=== PATIENT | female | born 1970 | race Caucasian/White ===

== ENCOUNTER → 2020-03-15 | Outpatient (CLI) | payer OTHER | END | disposition home or self-care (01) | LOC: LABWHC1 13:56 | PROVIDERS: ATTEND Neurological Surgery | DX: Z11.59 Encounter for screening for other viral diseases (principal); I67.1 Cerebral aneurysm, nonruptured ==

== ENCOUNTER 2022-08-03 11:52 | Day surgery (SDC) | payer OTHER ==
[2022-07-31 12:08] VITALS: BMI 20.9
[~2022-08-03 11:52] MED LIST: DEXAMETHASONE SOD PHOSPHATE 4 MG/ML 1 ML VIAL IV ONE; HYDROmorphone 0.5 MG/0.5 ML SYRINGE IVP PRN; LACTATED RINGERS 1,000 ML IV SCH; ONDANSETRON 4 MG/2 ML VIAL IVP ONE
[2022-08-03 12:22] VITALS: TEMP 98.7
[2022-08-03 12:57] VITALS: RESP 16
[2022-08-03] MEDS ORDERED: MIDAZOLAM 2 MG/2 ML VIAL IV ONE (12:59)
[2022-08-03] MEDS ORDERED: DEXAMETHASONE SOD PHOSPHATE 4 MG/ML 1 ML VIAL ONE (13:08)
[2022-08-03] MEDS ORDERED: fentaNYL (PF) 50 MCG/ML 2 ML AMP ONE (13:08)
[2022-08-03] MEDS ORDERED: ROPIVACAINE 5 MG/ML 30 ML VIAL ONE (13:08)
[2022-08-03] MEDS ORDERED: MIDAZOLAM 2 MG/2 ML VIAL ONE (13:08)
[2022-08-03] MEDS ORDERED: PROPOFOL 10 MG/ML 20 ML VIAL IV ONE (13:08)
--- NOTE | 2022-08-03 13:24 | P.ANPRN ---
Procedure Note - Anesthesia - Nerve Block Performed Right Supraclavicular Single Time Out Performed: Yes Date of Procedure: 08/03/22 Procedure Start Time: 13:01 Procedure Stop Time: 13:06 Location of Patient: PreOp Indication: Acute Post-Operative Pain, Analgesia, Requested by Surgeon Sedation Type: Sedate with meaningful contact maintained Preparation: Sterile Prep Position: Sitting Catheter: None Needle Types: Pajunk Needle Gauge: 21 Ultrasound used to visualize needle placement: Yes Ultrasound used to observe medication spread: Yes Injectate: 0.5% Ropivacaine (see comment for volume) (20 + 10mg dexamethasone) Blood Aspirated: No Pain Paresthesia on Injection Noted: No Resistance on Injection: Normal Image Stored and Saved: Yes Events: Uneventful and Well Tolerated
[2022-08-03] MEDS ORDERED: GELATIN SPONGE,ABSORB (SMALL) 1 EACH SPONGE MISCELLANE ONE (13:39)
[2022-08-03] MEDS ORDERED: LACTATED RINGERS 1,000 ML IV ONE (13:53)
--- NOTE | 2022-08-03 14:09 | P.OP ---
Date of Procedure: 08/03/22 Preoperative Diagnosis: Right thumb CMC osteoarthritis Postoperative Diagnosis: Same Procedure(s) Performed: Right thumb tendon arthroplasty Anesthesia: MAC, regional Surgeon: Concepcion Simmons Greeter Guest Services #1: Alia Casarez Estimated Blood Loss (ml): 5 Condition: stable Disposition: PACU Indications for Procedure: Vickie is a 52-year-old female who has a long history of right CMC pain. She has failed conservative therapy and would like to proceed with surgical intervention. Description of Procedure: Patient, operative extremity, and procedure were identified in the preop holding area. After informed consent was obtained the patient received a regional block by the anesthesia team. She was then brought back to the operating room where the extremity was prepped and draped in normal sterile fashion. After a formal timeout was performed the tourniquet was inflated. A longitudinal incision was made over the CMC joint of the thumb at the intersection of the glabrous and non-glabrous skin. Dissection was carried down to the extensor tendons with care taken to protect the cutaneous nerves. The interval between the APB and EPB was developed and the joint capsule was accessed. The branch of the radial artery was identified and carefully protecte d. Interval between the metacarpal and the trapezium was entered with a Mercer elevator. The positioning was checked on fluoroscopy. The capsule was then lifted in a distal-based flap. Dissection was carried around the trapezium with a McClamary elevator. The trapezium was then removed in its entirety with a rongeur. A suture tape suture was then utilized to tenodesis the APL to the FCR tendon in the base of the wound. This produced a sling a fact and some abduction of the metacarpal. Axial compression revealed stable construct. A piece of Surgicel was placed into the wound itself. Capsule was repaired in an imbricated fashion to accentuate the abduction of the metacarpal. The tourniquet was then let down hemostasis was achieved and the wound was closed with 4-0 Monocryl and skin glue. Wound was dressed with Adaptic 4 x 4's cast padding and a thumb spica splint.
[2022-08-03 14:31] VITALS: BP 110/74; PULSE 70
== END 2022-08-03 14:48 | disposition home or self-care (01) ==
LOC: OR 11:52
PROVIDERS: ATTEND Orthopaedic Surgery Hand Surgery
DX: M18.11 Unilateral primary osteoarthritis of first carpometacarpal joint, right hand (principal); G89.18 Other acute postprocedural pain; G47.00 Insomnia, unspecified; F41.8 Other specified anxiety disorders; I10 Essential (primary) hypertension; F17.200 Nicotine dependence, unspecified, uncomplicated; Z79.899 Other long term (current) drug therapy
CPT/HCPCS: 64415; 76942; 26535; J2250; J1100; J2405; J0690; J3010; J2795; J2704

== ENCOUNTER 2022-09-30 10:51 | Emergency (ER) | payer OTHER ==
[2022-09-30 10:58] VITALS: RESP 18
[2022-09-30] MEDS ORDERED: SODIUM CHLORIDE 0.9% 1,000 ML IV STA (11:10)
[2022-09-30] MEDS ORDERED: ONDANSETRON 4 MG/2 ML VIAL IVP STA (11:10)
[2022-09-30] MEDS ORDERED: PANTOPRAZOLE 40 MG/10 ML VIAL IVP STA (11:11)
--- NOTE | 2022-09-30 11:15 | ED ---
Nausea/Vomiting/Diarrhea HPI - General Chief complaint: Nausea/Vomiting/Diarrhea Stated complaint: N/V/D, fever, cough Time Seen by Provider: 09/30/22 11:03 Source: patient, RN notes reviewed, old records reviewed Mode of arrival: ambulatory Limitations: no limitations - History of Present Illness Initial comments: 52-year-old female presents to the emergency room with complaints of nausea, vomiting, diarrhea, headache and chills for the past week. She states has had nasal congestion for two weeks. She denies any documented fevers. She is a half pack a day smoker. History of hypertension, migraine headaches. Takes lisinopril and Cymbalta daily. MD complaint: nausea, vomiting, diarrhea -: week(s) (1) Description of Vomiting: watery Description of Diarrhea: water Associated Abdominal Pain: No Severity scale (1-10): 0 Associated Symptoms: fever/chills, headaches, nausea/vomiting, other (Diarrhea) - Related Data Home Medications Medication Instructions Recorded Confirmed Butalb/APAP/Caff 50-325-40Mg 1 tab PO Q4H PRN 07/31/22 09/30/22 [Fioricet 50-325-40] Celecoxib [CeleBREX] 200 mg PO DAILY 07/31/22 09/30/22 Cholecalciferol [Vitamin D3 (25 25 mcg PO DAILY 07/31/22 09/30/22 Mcg = 1000 Iu)] Cyanocobalamin (Vitamin B-12) 1,000 mcg PO DAILY 07/31/22 09/30/22 [Vitamin B-12] DULoxetine HCL [Cymbalta] 30 mg PO BID 07/31/22 09/30/22 Ipratropium/Albuter 20-100Mcg 1 puff INHALATION RT-QID PRN 07/31/22 09/30/22 [Combivent Respimat 20-100Mcg Inhaler] lisinopriL [Zestril] 10 mg PO DAILY 07/31/22 09/30/22 traZODone HCL 2 tab PO HS 07/31/22 09/30/22 Allergies Allergy/AdvReac Type Severity Reaction Status Date / Time No Known Allergies Allergy Verified 09/30/22 16:33 Review of Systems ROS Statement: Those systems with pertinent positive or pertinent negative responses have been documented in the HPI. ROS Other: All systems not noted in ROS Statement are negative. Past Medical History Past Medical History: Hypertension Additional Past Medical History / Comment(s): MIGRAINES, SMALL BRAIN ANEURYSMS- BEING WATCHED, LARGE BRAIN ANEURYSM CLIPPED History of Any Multi-Drug Resistant Organisms: None Reported Past Surgical History: Tubal Ligation Additional Past Surgical History / Comment(s): BRAIN SURGERY AT [facility] FOR CLIPPING OF ANEURYSM Past Anesthesia/Blood Transfusion Reactions: No Reported Reaction Past Psychological History: Anxiety, Depression Smoking Status: Current every day smoker Past Alcohol Use History: None Reported Past Drug Use History: None Reported - Past Family History Mother Family Medical History: Hypertension Additional Family Medical History / Comment(s): DIVERTICULITIS Father History Unknown: Yes Sister(s) Additional Family Medical History / Comment(s): CROHNS General Exam Limitations: no limitations General appearance: alert, in no apparent distress Head exam: Present: atraumatic, normocephalic Eye exam: Present: normal appearance. Absent: scleral icterus, conjunctival injection, periorbital swelling, periorbital tenderness ENT exam: Present: mucous membranes moist Neck exam: Present: normal inspection, full ROM. Absent: tenderness, meningismus, lymphadenopathy Respiratory exam: Present: normal lung sounds bilaterally. Absent: respiratory distress, wheezes, rales, rhonchi, stridor, chest wall tenderness, accessory muscle use Cardiovascular Exam: Present: regular rate GI/Abdominal exam: Present: soft. Absent: distended, tenderness, rigid Extremities exam: Present: normal inspection, full ROM, normal capillary refill. Absent: pedal edema Neurological exam: Present: alert, oriented X3 Psychiatric exam: Present: normal affect, normal mood Skin exam: Present: warm, dry, normal color. Absent: rash, cyanosis, diaphoretic, petechiae, pallor Course Vital Signs 09/30/22 09/30/22 09/30/22 10:56 11:48 14:04 Temperature 97.9 F 97.2 F L Pulse Rate 92 70 Respiratory 18 18 Rate Blood Pressure 105/72 96/69 118/85 O2 Sat by Pulse 100 95 Oximetry Medical Decision Making - Medical Decision Making Vital signs are stable patient is afebrile Given Zofran and Protonix and IV fluids CBC shows a mild leukocytosis, electrolytes and dehydration. She is positive for coronavirus Vital signs are stable case discussed with Dr. Isbell Was pt. sent in by a medical professional or institution? @ -No Did you speak to anyone other than the patient for history? @ -No Did you review nursing and triage notes? @ -Yes I agree Were old charts reviewed? @ -No Differential Diagnosis? @ -Differential Abdominal Pain Women: pancreatitis, hepatitis, gastroenteritis, peptic ulcer disease, viral illness this is not meant to be an all-inclusive list What testing was considered but not performed? (CT, X-rays, U/S, labs)? Why? @ None] What meds were considered but not given? Why? @ -None Did you discuss the management of the patient with other professionals? @ -No Did you reconcile home meds? @ -No Was smoking cessation discussed for >3mins.? @ -Yes Was critical care preformed (if so, how long)? @ -No Were there social determinants of health that impacted care today? How? (Homelessness, low income, unemployed, alcoholism, drug addiction, transportation, low edu. Level, literacy, decrease access to med. care, detention, rehab)? @ -No Was there de-escalation of care discussed even if they declined? (Discuss DNR or withdrawal of care, Hospice)? @ -No What co-morbidities impacted this encounter? (DM, HTN, Smoking, COPD, CAD, Cancer, CVA, Hep., AIDS, mental health diagnosis, sleep apnea, morbid obesity)? @ -Hypertension, migraines, anxiety, depression, smoking Was patient admitted / discharged? @ -Discharged Undiagnosed new problem with uncertain prognosis? @ -[none] Drug Therapy requiring intensive monitoring for toxicity (Heparin, Nitro, Insulin, Cardizem)? @ -No Were any procedures done? @ -None Diagnosis/symptom? @ -Coronavirus Acute, or Chronic, or Acute on Chronic? @ -Acute Uncomplicated (without systemic symptoms) or Complicated (systemic symptoms)? @ -Uncomplicated Side effects of treatment? @ -[none] Exacerbation, Progression, or Severe Exacerbation] @ -[no] Poses a threat to life or bodily function? @ -[no] - Lab Data Result diagrams: 09/30/22 11:39 09/30/22 11:39 Lab Results 09/30/22 09/30/22 09/30/22 Range/Units 11:39 11:39 11:39 WBC 12.0 H (3.8-10.6) k/uL RBC 3.78 L (3.80-5.40) m/uL Hgb 12.1 (11.4-16.0) gm/dL Hct 35.2 (34.0-46.0) % MCV 93.2 (80.0-100.0) fL MCH 32.1 (25.0-35.0) pg MCHC 34.5 (31.0-37.0) g/dL RDW 13.3 (11.5-15.5) % Plt Count 240 (150-450) k/uL MPV 9.0 Neutrophils % 82 % Lymphocytes % 8 % Monocytes % 6 % Eosinophils % 0 % Basophils % 0 % Neutrophils # 9.8 H (1.3-7.7) k/uL Lymphocytes # 1.0 (1.0-4.8) k/uL Monocytes # 0.7 (0-1.0) k/uL Eosinophils # 0.1 (0-0.7) k/uL Basophils # 0.0 (0-0.2) k/uL Sodium 135 L (137-145) mmol/L Potassium 3.7 (3.5-5.1) mmol/L Chloride 104 (98-107) mmol/L Carbon Dioxide 25 (22-30) mmol/L Anion Gap 6 mmol/L BUN 21 H (7-17) mg/dL Creatinine 0.75 (0.52-1.04) mg/dL Est GFR (CKD-EPI)AfAm >90 (>60 ml/min/1.73 sqM) Est GFR (CKD-EPI)NonAf >90 (>60 ml/min/1.73 sqM) Glucose 128 H (74-99) mg/dL Calcium 8.4 (8.4-10.2) mg/dL Total Bilirubin 0.5 (0.2-1.3) mg/dL AST 99 H (14-36) U/L ALT 88 H (4-34) U/L Alkaline Phosphatase 143 H (38-126) U/L Total Protein 6.5 (6.3-8.2) g/dL Albumin 3.3 L (3.5-5.0) g/dL Influenza Type A (PCR) Not Detected (Not Detectd) Influenza Type B (PCR) Not Detected (Not Detectd) RSV (PCR) Not Detected (Not Detectd) SARS-CoV-2 (PCR) Detected A (Not Detectd) Disposition Clinical Impression: COVID-19 Disposition: HOME SELF-CARE Condition: Good Instructions (If sedation given, give patient instructions): COVID-19 (Coronavirus Disease 2019) (ED) Additional Instructions: Increase your fluid intake. Follow-up with the primary care doctor this week. Take vitamin C, vitamin D and zinc to improve your immune health. Stop smoking as this will lengthen the duration of your illness. Is patient prescribed a controlled substance at d/c from ED?: No Referrals: Lillian Rubi MD [Primary Care Provider] - 1-2 days Time of Disposition: 12:50
[2022-09-30 11:49] LABS: Basophils % (A) 0 %; Eosinophils # (A) 0.1 k/uL (0-0.7); Eosinophils % (A) 0 %; HCT 35.2 % (34.0-46.0); HGB 12.1 gm/dL (11.4-16.0); Lymphocytes % (A) 8 %; MCH 32.1 pg (25.0-35.0); MCHC 34.5 g/dL (31.0-37.0); MCV 93.2 fL (80.0-100.0); Monocytes # (A) 0.7 k/uL (0-1.0); Monocytes % (A) 6 %; Neutrophils # (A) 9.8 k/uL (1.3-7.7); Neutrophils % (A) 82 %; Platelet Count 240 k/uL (150-450); RBC 3.78 m/uL (3.80-5.40); RDW 13.3 % (11.5-15.5)
[2022-09-30 12:12] LABS: ALT 88 U/L (4-34); AST 99 U/L (14-36); African American GFR (CKD) >90 (>60 ml/min/1.73 sqM); Albumin 3.3 g/dL (3.5-5.0); Alkaline Phosphatase 143 U/L (38-126); Anion Gap 6 mmol/L; Blood Urea Nitrogen 21 mg/dL (7-17); Calcium 8.4 mg/dL (8.4-10.2); Carbon Dioxide 25 mmol/L (22-30); Chloride 104 mmol/L (98-107); Glucose 128 mg/dL (74-99); Non-African American GFR(CKD) >90 (>60 ml/min/1.73 sqM); Potassium 3.7 mmol/L (3.5-5.1); Sodium 135 mmol/L (137-145); Total Bilirubin 0.5 mg/dL (0.2-1.3); Total Protein 6.5 g/dL (6.3-8.2)
[2022-09-30 14:07] VITALS: BP 118/85; PULSE 70; TEMP 97.2
== END 2022-09-30 14:08 | disposition home or self-care (01) ==
LOC: EC 10:51
DX: U07.1 COVID-19 (principal); I10 Essential (primary) hypertension; F41.9 Anxiety disorder, unspecified; F32.A Depression, unspecified; F17.210 Nicotine dependence, cigarettes, uncomplicated; Z79.899 Other long term (current) drug therapy
CPT/HCPCS: 36415; 80053; 85025; 87636; 99284; 96374; 96375; 96361; J2405; C9113

== ENCOUNTER 2024-04-20 11:20 | Observation (INO) | payer OTHER ==
--- NOTE | 2024-04-20 11:48 | ED ---
Chest Pain HPI - General Source: patient, RN notes reviewed <Lois Martins - Last Filed: 04/20/24 11:48> - General Source: patient, RN notes reviewed Limitations: no limitations <Mendoza Schumacher - Last Filed: 04/20/24 17:42> - General Chief Complaint: Chest Pain Stated Complaint: chest pain/SOB Time Seen by Provider: 04/20/24 11:38 - History of Present Illness Initial Comments: Quick [id number] female with a history of hypertension, COPD, and tobacco abuse presents emergency department chief complaint of intermittent chest pain over the past week. Patient states that symptoms will last for approximately 30 minutes to 1 hour and she has had episodes that awaken her from sleep. Patient was recently started on Wellbutrin approximately 2 weeks ago for anxiety. denies personal history of [place], CVA. Denies blood thinner use. (Lois Martins) Patient is a 53-year-old female presenting to the emergency department with concerns for chest discomfort. Symptoms have progressed over the past couple of weeks. Patient states symptoms do worsen with exertion. Patient does have some associated dyspnea. No nausea or diaphoresis. Patient is a smoker. Patient also has history of hypertension. Currently symptoms are mild. (Mendoza Schumacher) - Related Data Home Medications Medication Instructions Recorded Confirmed Butalb/APAP/Caff 50-325-40Mg 1 tab PO Q4H PRN 07/31/22 09/30/22 [Fioricet 50-325-40] Celecoxib [CeleBREX] 200 mg PO DAILY 07/31/22 09/30/22 Cholecalciferol [Vitamin D3 (25 25 mcg PO DAILY 07/31/22 09/30/22 Mcg = 1000 Iu)] Cyanocobalamin (Vitamin B-12) 1,000 mcg PO DAILY 07/31/22 09/30/22 [Vitamin B-12] DULoxetine HCL [Cymbalta] 30 mg PO BID 07/31/22 09/30/22 Ipratropium/Albuter 20-100Mcg 1 puff INHALATION RT-QID PRN 07/31/22 09/30/22 [Combivent Respimat 20-100Mcg Inhaler] lisinopriL [Zestril] 10 mg PO DAILY 07/31/22 09/30/22 traZODone HCL 2 tab PO HS 07/31/22 09/30/22 Allergies Allergy/AdvReac Type Severity Reaction Status Date / Time No Known Allergies Allergy Verified 04/20/24 11:48 Review of Systems ROS Other: All systems not noted in ROS Statement are negative. <Lois Martins - Last Filed: 04/20/24 11:48> ROS Other: All systems not noted in ROS Statement are negative. Constitutional: Denies: fever Eyes: Denies: eye pain Cardiovascular: Reports: as per HPI, chest pain, dyspnea on exertion <Mendoza Schumacher Last Filed: 04/20/24 17:42> ROS Statement: Those systems with pertinent positive or pertinent negative responses have been documented in the HPI. EKG Findings - EKG Results: EKG: interpreted by ERMD, sinus rhythm, normal axis, normal QRS, normal ST/T <Mendoza Schumacher Filed: 04/20/24 17:42> Past Medical History Past Medical History: Hypertension Additional Past Medical History / Comment(s): MIGRAINES, SMALL BRAIN ANEURYSMS- BEING WATCHED, LARGE BRAIN ANEURYSM CLIPPED History of Any Multi-Drug Resistant Organisms: None Reported Past Surgical History: Tubal Ligation Additional Past Surgical History / Comment(s): BRAIN SURGERY AT [facility] FOR CLIPPING OF ANEURYSM Past Anesthesia/Blood Transfusion Reactions: No Reported Reaction Past Psychological History: Anxiety, Depression Smoking Status: Current every day smoker Past Alcohol Use History: None Reported Past Drug Use History: None Reported - Past Family History Mother Family Medical History: Hypertension Additional Family Medical History / Comment(s): DIVERTICULITIS Father History Unknown: Yes Sister(s) Additional Family Medical History / Comment(s): CROHNS <Lois Martins - Last Filed: 04/20/24 11:48> Past Medical History: Hypertension Smoking Status: Current every day smoker <Mendoza Schumacher Last Filed: 04/20/24 17:42> General Exam <Lois Martins Last Filed: 04/20/24 11:48> Limitations: no limitations General appearance: alert, in no apparent distress Head exam: Present: normocephalic Eye exam: Present: normal appearance Neck exam: Present: normal inspection Respiratory exam: Present: normal lung sounds bilaterally. Absent: chest wall tenderness Cardiovascular Exam: Present: regular rate, normal rhythm, normal heart sounds Expanded Peripheral pulses: 2+: Radial (R), Radial (L), Posterior Tibialis (R), Posterior Tibialis (L) GI/Abdominal exam: Present: soft. Absent: tenderness Extremities exam: Present: normal inspection. Absent: pedal edema, calf tenderness Neurological exam: Present: alert Psychiatric exam: Present: normal affect, normal mood Skin exam: Present: normal color <Mendoza Schumacher - Last Filed: 04/20/24 17:42> - General Exam Comments Initial Comments: Visual Physical Exam Vital signs reviewed General: Well-appearing, nontoxic, no acute distress. Head: Normocephalic, atraumatic Eyes: PERRLA, EOMI ENT: Airway patent Chest: Nonlabored breathing Skin: No visual rash, normal skin tone Neuro: Alert and oriented 3 Musculoskeletal: No gross abnormalities (Lois Martins) Course Vital Signs 04/20/24 11:44 Temperature 97.6 F Pulse Rate 89 Respiratory 20 Rate Blood Pressure 139/93 O2 Sat by Pulse 98 Oximetry Chest Pain MDM <Lois Martins - Last Filed: 04/20/24 11:48> <Mendoza Schumacher - Last Filed: 04/20/24 17:42> - MDM I completed the quick note portion of this chart signed Lois Martins PA-C (oLis Martins) Was pt. sent in by a medical professional or institution (RACHELL Solano, CURATOR OF PHOTOGRAPHY AND PRINTS, urgent care, hospital, or correction...) When possible be specific @ -No Did you speak to anyone other than the patient for history (EMS, parent, family, police, friend...)? What history was obtained from this source @ -No Did you review nursing and triage notes (agree or disagree)? Why? @ -I reviewed and agree with nursing and triage notes Were old charts reviewed (outside hosp., previous admission, EMS record, old EKG, old radiological studies, urgent care reports/EKG's, correction records)? Report findings @ -No old charts were reviewed Differential Diagnosis (chest pain, altered mental status, abdominal pain women, abdominal pain men, vaginal bleeding, weakness, fever, dyspnea, syncope, headache, dizziness, GI bleed, back pain, seizure, CVA, palpatations, mental health, musculoskeletal)? @ -Differential Chest Pain: Stable Angina, Unstable Angina, STEMI, NSTEMI Aortic Dissection, Pneumothorax, Musculoskeletal, Esophageal Spasm GERD, Cholecystitis, Pancreatitis, Zoster, this is not meant to be an all-inclusive list. EKG interpreted by me (3pts min.). @ -As above X-rays interpreted by me (1pt min.). @ -Chest x-ray shows no acute process CT interpreted by me (1pt min.). @ -None done U/S interpreted by me (1pt. min.). @ -None done What testing was considered but not performed or refused? (CT, X-rays, U/S, labs)? Why? @ -None What meds were considered but not given or refused? Why? @ -None Did you discuss the management of the patient with other professionals ( professionals i.e. , PA, CURATOR OF PHOTOGRAPHY AND PRINTS, lab, RT, psych nurse, community mental health social worker, naphthol soaping machine operator, teacher, transit authority police officer, employment evaluator/case manager)? Give summary @ -Case was discussed with Dr. Rasheed who will admit covering Dr. Rubi Was smoking cessation discussed for >3mins.? @ -No Was critical care preformed (if so, how long)? @ -No Were there social determinants of health that impacted care today? How? (Homelessness, low income, unemployed, alcoholism, drug addiction, transportation, low edu. Level, literacy, decrease access to med. care, skilled nursing, rehab)? @ -No Was there de-escalation of care discussed even if they declined (Discuss DNR or withdrawal of care, Hospice)? DNR status @ -No What co-morbidities impacted this encounter? (DM, HTN, Smoking, COPD, CAD, Cancer, CVA, ARF, Chemo, Hep., AIDS, mental health diagnosis, sleep apnea, morbid obesity)? @ -Attention and smoking Was patient admitted / discharged? Hospital course, mention meds given and route, prescriptions, significant lab abnormalities, going to OR and other pertinent info. @ -Patient presents with progressive chest discomfort of the past couple of weeks, exertional with risk factors of smoking and hypertension. Mild symptoms at this time. Troponin and EKG without acute abnormality. Case discussed with Dr. Rasheed who will admit. Admission orders written. Consult placed with cardiology Undiagnosed new problem with uncertain prognosis? @ -No Drug Therapy requiring intensive monitoring for toxicity (Heparin, Nitro, Insulin, Cardizem)? @ -No Were any procedures done? @ -No Diagnosis/symptom? @ -Chest pain Acute, or Chronic, or Acute on Chronic? @ -Acute Uncomplicated (without systemic symptoms) or Complicated (systemic symptoms)? @ -Default Side effects of treatment? @ -No Exacerbation, Progression, or Severe Exacerbation? @ -No Poses a threat to life or bodily function? How? (Chest pain, [place], [place], pneumonia, PE, COPD, DKA, ARF, appy, cholecystitis, CVA, Diverticulitis, Homicidal, Suicidal, threat to staff... and all critical care pts) @ -Threat to cardiac function (Mendoza Schumacher) Disposition <Lois Maritns - Last Filed: 04/20/24 11:48> Is patient prescribed a controlled substance at d/c from ED?: No Time of Disposition: 17:42 <Mendoza Schumacher - Last Filed: 04/20/24 17:42> Clinical Impression: Chest pain Disposition: ADMITTED IP TO THIS HOSP Referrals: Lillian Rubi MD [Primary Care Provider] - 1-2 days
[2024-04-20 12:08] LABS: Basophils % (A) 0 %; Eosinophils # (A) 0.2 k/uL (0-0.7); Eosinophils % (A) 3 %; HCT 41.4 % (34.0-46.0); HGB 14.3 gm/dL (11.4-16.0); Lymphocytes # (A) 1.1 k/uL (1.0-4.8); Lymphocytes % (A) 17 %; MCH 31.7 pg (25.0-35.0); MCHC 34.4 g/dL (31.0-37.0); MCV 92.1 fL (80.0-100.0); Mean Platelet Volume 8.6; Monocytes # (A) 0.5 k/uL (0-1.0); Monocytes % (A) 7 %; Neutrophils # (A) 4.5 k/uL (1.3-7.7); Neutrophils % (A) 71 %; Platelet Count 193 k/uL (150-450); RDW 12.3 % (11.5-15.5); WBC 6.3 k/uL (3.8-10.6)
[2024-04-20 12:19] LABS: Partial Thromboplastin Time 28.5 sec (22.0-30.0); Prothrombin Time 11.4 sec (10.0-12.5)
[2024-04-20 12:34] LABS: ALT 46 U/L (4-34); AST 47 U/L (14-36); African American GFR (CKD) >90 (>60 ml/min/1.73 sqM); Albumin 3.9 g/dL (3.5-5.0); Alkaline Phosphatase 64 U/L (38-126); Anion Gap 8 mmol/L; Blood Urea Nitrogen 11 mg/dL (7-17); Calcium 9.5 mg/dL (8.4-10.2); Carbon Dioxide 21 mmol/L (22-30); Chloride 107 mmol/L (98-107); Glucose 127 mg/dL (74-99); Magnesium 1.8 mg/dL (1.6-2.3); Non-African American GFR(CKD) >90 (>60 ml/min/1.73 sqM); Potassium 3.8 mmol/L (3.5-5.1); Sodium 136 mmol/L (137-145); Total Bilirubin 0.4 mg/dL (0.2-1.3); Total Protein 6.6 g/dL (6.3-8.2)
--- NOTE | 2024-04-20 12:50 | XR ---
EXAMINATION TYPE: XR chest 2V DATE OF EXAM: 04/20/2024 COMPARISON: 08/23/2015 HISTORY: Shortness of breath TECHNIQUE: Frontal and lateral views of the chest are obtained. FINDINGS: Scattered senescent parenchymal changes noted. Hyperinflation compatible with COPD. No evidence for infiltrate. No evidence for atelectasis. Heart size is stable. Mediastinal structures are stable and grossly unremarkable. No evidence for hilar prominence. Degenerative changes dorsal spine. IMPRESSION: 1. No evidence for acute pulmonary disease.
[2024-04-20] MEDS ORDERED: NITROGLYCERIN SL TABS 0.4 MG TAB SUBLINGUAL PRN (17:42)
[2024-04-20] MEDS ORDERED: DOBUTamine DRIP for NUC MED 500 MG in DEXTROSE/WATER 1 250ML.BAG IV PRN (18:24)
[2024-04-20] MEDS: ASPIRIN 81 MG PO STA (18:44)
[2024-04-20] MEDS: NITROGLYCERIN OINT 1 INCH/GM PACKET TOPICAL SCH (18:44)
[2024-04-20] MEDS: MELATONIN 3 MG TABLET PO SCH (23:50)
[2024-04-20] MEDS: MELATONIN 5 MG TABLET PO ONE (23:53)
[2024-04-21 02:54] LABS: Chol/HDL Ratio 4.39 Ratio; LDL Cholesterol,Calculated 93.7 mg/dL (0.0-131.0)
--- NOTE | 2024-04-21 06:08 | P.HPIM ---
History of Present Illness H&P Date: 04/20/24 HISTORY OF PRESENT ILLNESS: 53-year-old with active medical history of depression, chronic smoking, COPD, gastritis and GERD, hyperlipidemia, hypertension and chronic arthralgia who presented to the emergency department at [facility] on 04/20/2024 complaining of recurrent chest pain worsening with exertion in the midsternal area radiating toward the left side with recurrent episode for the last few weeks has been much worse lately. She worked in [employer] and claim her symptom has been much worse in the last 2 weeks with exertion specially when climbing stairs doing stocking lifting and such. Symptoms were much worse today she had several episodes did not improve with rest. She has some risk factor consistent with smoking, hypertension, hyperlipidemia and family history of heart disease and up coming to the emergency department at [facility] where was seen and evaluated apparently was seen recently by her primary care provider and symptoms at that time were more skeletal muscular was treated conservative management no testing required. This time had CK troponin came back negative she had slightly abnormal liver function test with mild hyponatremia and mild hyperglycemia with normal CBC. EKG did not show any major abnormality hide normal sinus rhythm with pulse in the 90s. Chest x-ray showed no evidence of pulmonary process or infection. With her strong suspicion and history especially with chronic smoking, elevated cholesterol high blood pressure and family history decided to admit patient to the hospital consult cardiology secure troponin x 3 will be done will order an echocardiogram and probably patient will be going for stress echo. REVIEW OF SYSTEMS: CONSTITUTIONAL: Well-developed no acute respiratory distress. EYES: No icterus sclerae, no conjunctivitis. EARS, NOSE, MOUTH, THROAT, and FACE: No sore throat, lymphadenopathy, carotid bruits or deformity. RESPIRATORY: Mild shortness of breath cough and wheeze. CARDIOVASCULAR: Recurrent chest pain and angina with PND and orthopnea. GASTROINTESTINAL: No Abd pain, Nausea or vomiting, no Diarrhea or constipation, No GI Bleed, no distention or masses. Mild heartburn indigestion. GENITOURINARY: Negative for Hematuria or UTI, no kidney stones. INTEGUMENT/BREAST: Negative for any muscular injury with mild osteoarthritis.. HEMATOLOGIC/LYMPHATIC: Negative for bleed or purpura. MUSCULOSKELTAL: Negative for Myalgia or arthralgia. NEURLOGICAL: No LOC, Sz or syncope, blurred vision dizziness or abnormality.. BEHAVIORAL/PSYCH: Negative. ENDOCRINE: Negative. 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 Family history: Both parents are living in their 70s her father is 75 had COPD and CAD, mother is in her 73 had GERD. Patient has 1 sister who has Crohn disease patient has 3 children with no major medical problems. PHYSICAL EXAMINATION: General Appearance: Alert, cooperative, no distress, appears stated age. Neck HEENT: Supple, no lymphadenopathy, no thyroid enlargement, no carotid bruits. Lungs: Significant decreased breath sound bilaterally not moving much air with typical COPD positive mild rhonchi slight expiratory wheezes. Chest Wall: Decreased expansion with deep inspiration no tenderness and no deformity was found on exam, no costochondral pain or discomfort. Heart: Regular rate and rhythm, S1, S2 normal, no murmur, rub or gallop. Back: Symmetric, no curvature, ROM normal, no CVA tenderness. Abdomen: Soft, non-tender, bowel sounds active all four quadrants, no masses, no organomegaly. Extremities: Extremities normal, atraumatic, no cyanosis or edema. Pulses: 2+ and symmetric. Skin: Skin color, texture, tugor normal, no rashes or lesions. Neurologic: Alert oriented x3 cranial nerves II through XII intact, no motor deficit, no abnormal balance or gait. ASSESSMENT AND PLAN: _Recurrent chest pain and angina with worsening symptoms with exertion, no change in EKG, troponin is negative the patient had strong risk factor including smoking, high blood pressure, hyperglycemia, hyperlipidemia and family history, she will be admitted, stress test and echo will be done consult cardiology CK troponin x 3 will be done. _Elevated blood pressure So far she is wanting 130 140/94 might benefit from being on small dose of ARB like metoprolol 25 mg a day. _Hyperlipidemia: Had elevated cholesterol never been on medication in the past. _Hyperglycemia, elevated blood sugar on admission fasting patient A1c be order based on it might benefit from SGLT2 product specially with her current history as well. _COPD: Mostly secondary to chronic smoking with significant tightness patient can benefit from at least bronchodilator along with steroid inhaler or [place] product like Trelegy might be extremely beneficial especially keeping in hand Ventolin HFA as an option. _Chronic history of smoking with nicotine dependency: Smoking cessation was addressed in detail apparently was started on Wellbutrin in the office patient did not take it nicotine patch can be offered as an alternative for now. _Mild depression: Again resume Wellbutrin and titrate dose higher if needed. _GI prophylaxis: Patient be on Pepcid 20 mg daily. _DVT prophylaxis: Knee-high MAUREEN hose and early mobilization. CODE STATUS: Full code. Admit patient to observation status for 1-2 night stay. Past Medical History Past Medical History: Hypertension Additional Past Medical History / Comment(s): MIGRAINES, SMALL BRAIN ANEURYSMS- BEING WATCHED, LARGE BRAIN ANEURYSM CLIPPED History of Any Multi-Drug Resistant Organisms: None Reported Past Surgical History: Tubal Ligation Additional Past Surgical History / Comment(s): BRAIN SURGERY AT [facility] FOR CLIPPING OF ANEURYSM Past Anesthesia/Blood Transfusion Reactions: No Reported Reaction Smoking Status: Current every day smoker - Past Family History Mother Family Medical History: Hypertension Additional Family Medical History / Comment(s): DIVERTICULITIS Father History Unknown: Yes Sister(s) Additional Family Medical History / Comment(s): CROHNS Medications and Allergies Home Medications Medication Instructions Recorded Confirmed Type buPROPion HCL [Wellbutrin XL] 150 mg PO DIRECTED 04/20/24 04/20/24 History Allergies Allergy/AdvReac Type Severity Reaction Status Date / Time No Known Allergies Allergy Verified 04/20/24 18:14 Physical Exam Vitals: Vital Signs Temp Pulse Pulse Resp BP Pulse Ox 04/20/24 17:42 98.8 F 76 16 140/87 98 04/20/24 17:40 79 04/20/24 16:40 80 17 142/90 96 04/20/24 11:44 97.6 F 89 20 139/93 98 Intake and Output 04/20/24 04/20/24 04/20/24 06:59 14:59 22:59 Other: Weight 47.627 kg Results CBC & Chem 7: 04/20/24 12:02 04/20/24 12:02 Labs: Abnormal Lab Results - Last 24 Hours (Table) 04/20/24 04/20/24 Range/Units 12:02 18:02 D-Dimer 1.37 H (<0.60) mg/L FEU Sodium 136 L (137-145) mmol/L Carbon Dioxide 21 L (22-30) mmol/L Glucose 127 H (74-99) mg/dL AST 47 H (14-36) U/L ALT 46 H (4-34) U/L
[2024-04-21 06:49] LABS: Glucose,Whole Blood 90 mg/dL (70-110)
[2024-04-21] MEDS: INSULIN ASPART (NovoLOG) 100 UNIT/ML VIAL SQ SCH (06:53)
--- NOTE | 2024-04-21 07:47 | CT ---
EXAMINATION TYPE: CT chest angio for PE DATE OF EXAM: 04/21/2024 COMPARISON: None HISTORY: PE CT DLP: 168.9 mGycm CONTRAST: CT chest with contrast and 3D reconstruction with MIP imaging is performed with IV Contrast, patient injected with 60 mL of Isovue 370. Contrast-enhanced CT of the chest was performed through the course of the pulmonary arteries with neelam g and mediastinal window settings submitted. 3D reconstruction with MIP imaging was also performed. PULMONARY ARTERIES: The pulmonary arteries and their major tributaries are patent. I do not see pankaj dence for sizable filling defect to suggest pulmonary embolic process. LUNGS: The lungs are clear and free of infiltrate. Linear basilar atelectasis. No pulmonary nodule or mass is detected. No pleural effusion. MEDIASTINUM: Thoracic aorta is of normal caliber.The heart is not enlarged. No evidence for mediast inal mass. No mediastinal lymph nodes greater than 1cm. HILAR STRUCTURES: No evidence for mass. No hilar lymph nodes greater than 1 cm. UPPER ABDOMEN: No significant abnormality is seen. IMPRESSION: 1. No evidence for Pulmonary embolism at this time.
[2024-04-21 08:34] VITALS: TEMP 98.3
[2024-04-21] MEDS: LOSARTAN 25 MG TAB PO SCH (08:35)
[2024-04-21] MEDS: NICOTINE 14MG/24HR PATCH TRANSDERM SCH (08:35)
[2024-04-21] MEDS: FAMOTIDINE 20 MG TAB PO SCH (08:35)
[2024-04-21] MEDS: ASPIRIN 325 MG TAB PO SCH (08:35)
[2024-04-21] MEDS ORDERED: ALPRAZolam 0.25 MG TAB PO PRN (09:14)
[2024-04-21] MEDS ORDERED: ALPRAZolam 0.5 MG TAB PO PRN (09:14)
[2024-04-21 09:42] LABS: Basophils % (A) 1 %; Eosinophils # (A) 0.2 k/uL (0-0.7); Eosinophils % (A) 4 %; HCT 38.7 % (34.0-46.0); Lymphocytes # (A) 1.1 k/uL (1.0-4.8); Lymphocytes % (A) 20 %; MCH 31.5 pg (25.0-35.0); MCHC 33.6 g/dL (31.0-37.0); MCV 93.8 fL (80.0-100.0); Mean Platelet Volume 9.5; Monocytes # (A) 0.5 k/uL (0-1.0); Monocytes % (A) 9 %; Neutrophils # (A) 3.6 k/uL (1.3-7.7); Neutrophils % (A) 65 %; Platelet Count 195 k/uL (150-450); RBC 4.13 m/uL (3.80-5.40); RDW 12.3 % (11.5-15.5); WBC 5.5 k/uL (3.8-10.6)
[2024-04-21] MEDS: ATORVASTATIN 80 MG TAB PO STA (10:14)
[2024-04-21] MEDS: SODIUM CHLORIDE 0.9% 1,000 ML in EMPTY BAG 1 BAG IV SCH (10:20)
[2024-04-21 10:21] VITALS: RESP 18
[2024-04-21 10:31] LABS: African American GFR (CKD) >90 (>60 ml/min/1.73 sqM); Anion Gap 7 mmol/L; Blood Urea Nitrogen 15 mg/dL (7-17); Calcium 8.8 mg/dL (8.4-10.2); Carbon Dioxide 21 mmol/L (22-30); Chloride 107 mmol/L (98-107); Glucose 69 mg/dL (74-99); Non-African American GFR(CKD) >90 (>60 ml/min/1.73 sqM); Sodium 135 mmol/L (137-145)
[2024-04-21 10:46] LABS: Chol/HDL Ratio 4.47 Ratio; LDL Cholesterol,Calculated 94.5 mg/dL (0.0-131.0); VLDL Calculation 19.64 mg/dL (5.00-40.00)
[2024-04-21] MEDS: buPROPion XL 150 MG TAB.ER.24H PO SCH (10:53)
--- NOTE | 2024-04-21 11:35 | P.PN ---
Subjective Progress Note Date: 04/21/24 HISTORY OF PRESENT ILLNESS: 53-year-old with active medical history of depression, chronic smoking, COPD, gastritis and GERD, hyperlipidemia, hypertension and chronic arthralgia who presented to the emergency department at [facility] on 04/20/2024 complaining of recurrent chest pain worsening with exertion in the midsternal area radiating toward the left side with recurrent episode for the last few weeks has been much worse lately. She worked in [employer] and claim her symptom has been much worse in the last 2 weeks with exertion specially when climbing stairs doing stocking lifting and such. Symptoms were much worse today she had several episodes did not improve with rest. She has some risk factor consistent with smoking, hypertension, hyperlipidemia and family history of heart disease and up coming to the emergency department at [facility] where was seen and evaluated apparently was seen recently by her primary care provider and symptoms at that time were more skeletal muscular was treated conservative management no testing required. This time had CK troponin came back negative she had slightly abnormal liver function test with mild hyponatremia and mild hyperglycemia with normal CBC. EKG did not show any major abnormality hide normal sinus rhythm with pulse in the 90s. Chest x-ray showed no evidence of pulmonary process or infection. With her strong suspicion and history especially with chronic smoking, elevated cholesterol high blood pressure and family history decided to admit patient to the hospital consult cardiology secure troponin x 3 will be done will order an echocardiogram and probably patient will be going for stress echo. : Patient is quite bit anxious this morning with the D-dimer being elevated she had doing CTA shows no evidence of pulmonary embolism, discussion with cardiology specially with her risk factor the decision is probably to go for heart cath today specially with her current symptoms because stress test might not be answered to capacity whether she have any blockage or not which I agree in the meanwhile patient other risk factor involved including her hyperglycemia, hyperlipidemia, family history, and chronic smoking will make the odds that this still is having heart disease is extremely high. Echocardiogram was done early results still pending. REVIEW OF SYSTEMS: CONSTITUTIONAL: Well-developed no acute respiratory distress. EYES: No icterus sclerae, no conjunctivitis. EARS, NOSE, MOUTH, THROAT, and FACE: No sore throat, lymphadenopathy, carotid bruits or deformity. RESPIRATORY: Mild shortness of breath cough and wheeze. CARDIOVASCULAR: Recurrent chest pain and angina with PND and orthopnea. GASTROINTESTINAL: No Abd pain, Nausea or vomiting, no Diarrhea or constipation, No GI Bleed, no distention or masses. Mild heartburn indigestion. GENITOURINARY: Negative for Hematuria or UTI, no kidney stones. INTEGUMENT/BREAST: Negative for any muscular injury with mild osteoarthritis.. HEMATOLOGIC/LYMPHATIC: Negative for bleed or purpura. MUSCULOSKELTAL: Negative for Myalgia or arthralgia. NEURLOGICAL: No LOC, Sz or syncope, blurred vision dizziness or abnormality.. BEHAVIORAL/PSYCH: Negative. ENDOCRINE: Negative. PHYSICAL EXAMINATION: General Appearance: Alert, cooperative, no distress, appears stated age. Neck HEENT: Supple, no lymphadenopathy, no thyroid enlargement, no carotid bruits. Lungs: Significant decreased breath sound bilaterally not moving much air with typical COPD positive mild rhonchi slight expiratory wheezes. Chest Wall: Decreased expansion with deep inspiration no tenderness and no deformity was found on exam, no costochondral pain or discomfort. Heart: Regular rate and rhythm, S1, S2 normal, no murmur, rub or gallop. Back: Symmetric, no curvature, ROM normal, no CVA tenderness. Abdomen: Soft, non-tender, bowel sounds active all four quadrants, no masses, no organomegaly. Extremities: Extremities normal, atraumatic, no cyanosis or edema. Pulses: 2+ and symmetric. Skin: Skin color, texture, tugor normal, no rashes or lesions. Neurologic: Alert oriented x3 cranial nerves II through XII intact, no motor deficit, no abnormal balance or gait. ASSESSMENT AND PLAN: _Recurrent chest pain and angina with worsening symptoms with exertion, echocardiogram was done and patient seen cardiology will be going for heart cath today. _Elevated blood pressure was started on losartan 25 mg a day. _Elevated D-dimer: Negative for PE at this point. _Hyperlipidemia: Had elevated cholesterol never been on medication in the past. Depending on the finding with a heart cath we will decide on further management whether she can benefit from being on statin or not. _Hyperglycemia, elevated blood sugar on admission fasting patient A1c be order based on it might benefit from SGLT2 product specially with her current history as well. _COPD: Mostly secondary to chronic smoking with significant tightness patient can benefit from at least bronchodilator along with steroid inhaler or combination product like Trelegy might be extremely beneficial especially keeping in hand Ventolin HFA as an option. _Chronic history of smoking with nicotine dependency: Smoking cessation was addressed in detail apparently was started on Wellbutrin in the office patient did not take it nicotine patch can be offered as an alternative for now. _Mild depression: Again resume Wellbutrin and titrate dose higher if needed. Discussion: Patient be going for heart cath, her echocardiogram was completed results still pending at this point. Objective - Vital Signs Vital signs: Vital Signs Temp 98.3 F 04/21/24 08:33 Pulse 83 04/21/24 10:20 Resp 18 04/21/24 10:20 BP 113/75 04/21/24 10:20 Pulse Ox 95 04/21/24 08:33 FiO2 Intake & Output 04/20/24 04/21/24 04/21/24 18:59 06:59 18:59 Weight 47.627 kg - Labs CBC & Chem 7: 04/21/24 06:53 04/21/24 06:53 Labs: Abnormal Lab Results - Last 24 Hours (Table) 04/20/24 04/20/24 04/20/24 Range/Units 12:02 18:02 20:45 D-Dimer 1.37 H (<0.60) mg/L FEU Sodium 136 L (137-145) mmol/L Carbon Dioxide 21 L (22-30) mmol/L Glucose 127 H (74-99) mg/dL AST 47 H (14-36) U/L ALT 46 H (4-34) U/L HDL Cholesterol 35.10 L (40.00-60.00) mg/dL 04/21/24 04/21/24 Range/Units 06:53 06:53 D-Dimer (<0.60) mg/L FEU Sodium 135 L (137-145) mmol/L Carbon Dioxide 21 L (22-30) mmol/L Glucose 69 L (74-99) mg/dL AST (14-36) U/L ALT (4-34) U/L HDL Cholesterol 32.90 L (40.00-60.00) mg/dL
--- NOTE | 2024-04-21 12:13 | P.CRDCN ---
History of Present Illness History of present illness: This is Dr. Hernandez dictating a consult on this patient The patient was interviewed and examined IMPRESSION / ASSESSMENT: Recurrent chest discomfort with normal cardiac enzymes, discomfort consistent with angina at rest Uncontrolled hypertension apparently only taking Wellbutrin Normal twelve-lead EKG with 2 normal troponins PLAN: Discussed with the patient and with Dr. Reyez. She has a history of hypertension, history of smoking and has recurrent chest discomfort consistent with angina Agree with antihypertensive therapy aspirin atorvastatin I would recommend coronary angiography to delineate the coronary anatomy to see if this explains her chest discomfort HPI 33-year-old female with hypertension and COPD and regular nicotine use admitted with intermittent chest discomfort for the last several weeks Associated shortness of breath The patient complains of precordial chest discomfort that goes up her neck and to her left shoulder and arm and has had recurrent such episodes ROS: No fever chills or rigors, no cough, phlegm or expectoration, no nausea, vomiting or diarrhea, no hematuria, dysuria, no musculoskeletal complaints, no strokes or seizures, no skin lesions. EXAMINATION: Blood pressure 139/93 and 142/90 mmHg afebrile pulse rate normal Normal heart sounds No lower extremity edema Reduced breath sounds bilaterally but no rhonchi no crackles REVIEW OF LABS, ECG & MEDICAL DATA Home medications Wellbutrin No known drug allergies Normal CBC with normal white count normal hemoglobin normal platelet count Elevated D-dimer 1.37 Sodium mildly reduced 136 potassium 3.8 low normal Bicarb 21, low Glucose elevated Renal function normal Magnesium 1.8 2 normal troponins Twelve-lead EKG shows sinus rhythm normal ST segments Chest x-ray normal Past Medical History Past Medical History: Hypertension Additional Past Medical History / Comment(s): MIGRAINES, SMALL BRAIN ANEURYSMS- BEING WATCHED, LARGE BRAIN ANEURYSM CLIPPED History of Any Multi-Drug Resistant Organisms: None Reported Past Surgical History: Tubal Ligation Additional Past Surgical History / Comment(s): BRAIN SURGERY AT [facility] FOR CLIPPING OF ANEURYSM Past Anesthesia/Blood Transfusion Reactions: No Reported Reaction Smoking Status: Current every day smoker - Past Family History Mother Family Medical History: Hypertension Additional Family Medical History / Comment(s): DIVERTICULITIS Father History Unknown: Yes Sister(s) Additional Family Medical History / Comment(s): CROHNS Medications and Allergies Home Medications Medication Instructions Recorded Confirmed Type buPROPion HCL [Wellbutrin XL] 150 mg PO DAILY 04/20/24 04/21/24 History Allergies Allergy/AdvReac Type Severity Reaction Status Date / Time No Known Allergies Allergy Verified 04/20/24 18:14 Physical Exam Vitals: Vital Signs Temp Pulse Pulse Resp BP Pulse Ox 04/20/24 18:43 98.4 F 76 18 136/94 97 04/20/24 17:42 98.8 F 76 16 140/87 98 04/20/24 17:40 79 04/20/24 16:40 80 17 142/90 96 04/20/24 11:44 97.6 F 89 20 139/93 98 Intake and Output 04/20/24 04/20/24 04/20/24 06:59 14:59 22:59 Other: Weight 47.627 kg Results 04/21/24 06:53 04/21/24 06:53 Cardiac Enzymes 04/20/24 04/20/24 04/20/24 Range/Units 12:02 12:02 17:53 AST 47 H (14-36) U/L Troponin I <0.012 <0.012 (0.000-0.034) ng/mL Coagulation 04/20/24 Range/Units 12:02 PT 11.4 (10.0-12.5) sec APTT 28.5 (22.0-30.0) sec CBC 04/20/24 Range/Units 12:02 WBC 6.3 (3.8-10.6) k/uL RBC 4.50 (3.80-5.40) m/uL Hgb 14.3 (11.4-16.0) gm/dL Hct 41.4 (34.0-46.0) % Plt Count 193 (150-450) k/uL Comprehensive Metabolic Panel 04/20/24 Range/Units 12:02 Sodium 136 L (137-145) mmol/L Potassium 3.8 (3.5-5.1) mmol/L Chloride 107 (98-107) mmol/L Carbon Dioxide 21 L (22-30) mmol/L BUN 11 (7-17) mg/dL Creatinine 0.63 (0.52-1.04) mg/dL Glucose 127 H (74-99) mg/dL Calcium 9.5 (8.4-10.2) mg/dL AST 47 H (14-36) U/L ALT 46 H (4-34) U/L Alkaline Phosphatase 64 (38-126) U/L Total Protein 6.6 (6.3-8.2) g/dL Albumin 3.9 (3.5-5.0) g/dL Current Medications Generic Name Dose Route Start Last Admin Trade Name Freq PRN Reason Stop Dose Admin Aspirin 325 mg 04/21/24 09:00 Aspirin 325 Mg Tab PO DAILY [facility] Bupropion HCl 150 mg 04/20/24 18:30 Bupropion Xl 150 Mg Tab.Er.24h PO DIRECTED [facility] Dobutamine HCl/Dextrose 500 mg 250 mls @ 14.288 mls/hr 04/20/24 18:24 / IV Solution IV 04/20/24 22:25 .[id number] PRN Per Protocol Protocol 10 MCG/KG/MIN Nitroglycerin 0.4 mg 04/20/24 17:42 Nitroglycerin Sl Tabs 0.4 Mg Tab SUBLINGUAL Q5M PRN Chest Pain Nitroglycerin 1 inch 04/20/24 18:00 04/20/24 18:44 Nitroglycerin Oint 1 Inch/Gm Packet TOPICAL 1 inch Q6HR [facility] Administration Intake and Output 04/20/24 04/20/24 04/20/24 06:59 14:59 22:59 Other: Weight 47.627 kg Patient Weight 04/21/24 06:59 Weight 47.627 kg 04/20/24 12:02 04/20/24 12:02
--- NOTE | 2024-04-21 13:20 | CA ---
Transthoracic Echo Report Name: Vickie Bailon Age: 53 Gender: F : 1970 Exam Date: 04/21/2024 08:18 Exam Location: [facility] Ht (in): 59 Wt (lb): 105 Ordering Physician: Patel Ortega MD Attending/Referring Phys: Cribbing Setter Brielle Waterman RDCS Procedure CPT: Indications: lvfunction Cardiac Hx: Technical Quality: Good Contrast 1: Total Dose (mL): Contrast 2: Total Dose (mL): MEASUREMENTS (Male / Female) Normal Values 2D ECHO LV Diastolic Diameter PLAX 4.3 cm 4.2 - 5.9 / 3.9 - 5.3 cm LV Systolic Diameter PLAX 2.6 cm IVS Diastolic Thickness 0.9 cm 0.6 - 1.0 / 0.6 - 0.9 cm LVPW Diastolic Thickness 1.0 cm 0.6 - 1.0 / 0.6 - 0.9 cm LV Relative Wall Thickness 0.5 RV Internal Dim ED PLAX 1.3 cm LA Systolic Diameter LX 2.9 cm 3.0 - 4.0 / 2.7 - 3.8 cm LV Diastolic Volume MOD BP 44.8 cm??? 67 - 155 / 56 - 104 cm??? LV Systolic Volume MOD BP 15.7 cm??? 22 - 58 / 19 - 49 cm??? LV Ejection Fraction MOD BP 65.0 % >= 55 % LV Cardiac Index MOD BP 1629.6 cm???/min???m??? LV Diastolic Volume MOD 4C 41.8 cm??? LV Systolic Volume MOD 4C 18.3 cm??? LV Ejection Fraction MOD 4C 56.1 % LV Cardiac Index MOD 4C 1311.3 cm???/min???m??? LV Diastolic Length 4C 6.9 cm LV Systolic Length 4C 5.7 cm LV Diastolic Volume MOD 2C 47.3 cm??? LV Systolic Volume MOD 2C 13.6 cm??? LV Ejection Fraction MOD 2C 71.3 % LV Cardiac Index MOD 2C 1884.1 cm???/min???m??? LV Diastolic Length 2C 7.1 cm LV Systolic Length 2C 5.7 cm M-MODE Aortic Root Diameter MM 2.8 cm LA Systolic Diameter MM 2.8 cm LA Ao Ratio MM 1.0 AV Cusp Separation MM 1.9 cm DOPPLER AI Peak Velocity 430.8 cm/s AI Peak Gradient 74.3 mmHg AI Pressure Half Time 757.1 ms Mitral E Point Velocity 55.6 cm/s Mitral A Point Velocity 72.4 cm/s Mitral E to A Ratio 0.8 MV Deceleration Time 255.6 ms MV E' Velocity 8.0 cm/s Mitral E to MV E' Ratio 7.0 TR Peak Velocity 221.5 cm/s TR Peak Gradient 19.6 mmHg Right Ventricular Systolic Press 24.6 mmHg FINDINGS Left Ventricle Left ventricular ejection fraction is estimated at 55-60%. Mildly increased posterior wall thickness. Left ventricular cavity size normal. Normal left ventricular wall motion. Right Ventricle Normal right ventricular size and function. Right ventricular systolic pressure within normal limits. Right Atrium Normal right atrial size. Left Atrium Normal left atrial size. Mitral Valve Structurally normal mitral valve. Trace mitral regurgitation. No mitral stenosis. Aortic Valve Trileaflet aortic valve. Mild aortic regurgitation. No aortic stenosis. Tricuspid Valve Structurally normal tricuspid valve. Mild tricuspid regurgitation. No tricuspid stenosis. Pulmonic Valve Structurally normal pulmonic valve. Trace pulmonic regurgitation. No pulmonic stenosis. Pericardium No pericardial or pleural effusion. Aorta Normal size aortic root and proximal ascending aorta. CONCLUSIONS Diagnosis: Chest pain Normal LV size and function Normal RV size and function Prominent posterior pericardial stripe without effusion Previewed by: Dr. Michael Hernandez MD (Electronically Signed) Final Date: 21 April 2024 13:19
[2024-04-21 13:44] LABS: Glucose,Whole Blood 98 mg/dL (70-110)
[2024-04-21 14:33] VITALS: BP 117/81; PULSE 79
[2024-04-22] MEDS ORDERED: HEPARIN SODIUM,PORCINE (1 ML) 2,500 UNIT in SODIUM CHLORIDE 0.9% 250 ML IRRIGATION PRN (07:00)
[2024-04-22] MEDS ORDERED: HEPARIN SODIUM,PORCINE 10,000 UNIT in SODIUM CHLORIDE 0.9% 1,000 ML IRRIGATION PRN (07:00)
[2024-04-22] MEDS ORDERED: ATORVASTATIN 40 MG TAB PO SCH (09:00)
--- NOTE | 2024-04-23 19:47 | P.DS ---
Providers Date of admission: 04/20/24 17:46 Attending physician: Patel Ortega Consults: 04/20/24 17:42 Consult Physician Urgent Consulting Provider: Blake Silvestre Consult Reason/Comments: cp Do you want consulting provider notified?: Yes Primary care physician: Lillian Rubi [facility] Course: HISTORY OF PRESENT ILLNESS: 53-year-old with active medical history of depression, chronic smoking, COPD, gastritis and GERD, hyperlipidemia, hypertension and chronic arthralgia who presented to the emergency department at [facility] on 04/20/2024 complaining of recurrent chest pain worsening with exertion in the midsternal area radiating toward the left side with recurrent episode for the last few weeks has been much worse lately. 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 Symptoms were much worse today she had several episodes did not improve with rest. She has some risk factor consistent with smoking, hypertension, hyperlipidemia and family history of heart disease and up coming to the emergency department at [facility] where was seen and evaluated apparently was seen recently by her primary care provider and symptoms at that time were more skeletal muscular was treated conservative management no testing required. This time had CK troponin came back negative she had slightly abnormal liver function test with mild hyponatremia and mild hyperglycemia with normal CBC. EKG did not show any major abnormality hide normal sinus rhythm with pulse in the 90s. Chest x-ray showed no evidence of pulmonary process or infection. With her strong suspicion and history especially with chronic smoking, elevated cholesterol high blood pressure and family history decided to admit patient to the hospital consult cardiology secure troponin x 3 will be done will order an echocardiogram and probably patient will be going for stress echo. : Patient is quite bit anxious this morning with the D-dimer being elevated she had doing CTA shows no evidence of pulmonary embolism, discussion with cardiology specially with her risk factor the decision is probably to go for heart cath today specially with her current symptoms because stress test might not be answered to capacity whether she have any blockage or not which I agree in the meanwhile patient other risk factor involved including her hyperglycemia, hyperlipidemia, family history, and chronic smoking will make the odds that this still is having heart disease is extremely high. Echocardiogram was done early and showed slight abnormality of the pericardium not a clear whether has any value clinically. As patient rate is waiting to go for heart cath she was more anxious and she decide if she is not having stress test she wants to leave the hospital and not to have the procedure done. Patient ended up signing AGAINST MEDICAL ADVICE and leaving the hospital before her heart catheter was done. Still highly recommended to have patient seen in the office as an outpatient with her primary care and discuss further management if needed specially if she still symptomatic. REVIEW OF SYSTEMS: CONSTITUTIONAL: Well-developed no acute respiratory distress. EYES: No icterus sclerae, no conjunctivitis. EARS, NOSE, MOUTH, THROAT, and FACE: No sore throat, lymphadenopathy, carotid bruits or deformity. RESPIRATORY: Mild shortness of breath cough and wheeze. CARDIOVASCULAR: Recurrent chest pain and angina with PND and orthopnea. GASTROINTESTINAL: No Abd pain, Nausea or vomiting, no Diarrhea or constipation, No GI Bleed, no distention or masses. Mild heartburn indigestion. GENITOURINARY: Negative for Hematuria or UTI, no kidney stones. INTEGUMENT/BREAST: Negative for any muscular injury with mild osteoarthritis.. HEMATOLOGIC/LYMPHATIC: Negative for bleed or purpura. MUSCULOSKELTAL: Negative for Myalgia or arthralgia. NEURLOGICAL: No LOC, Sz or syncope, blurred vision dizziness or abnormality.. BEHAVIORAL/PSYCH: Negative. ENDOCRINE: Negative. PHYSICAL EXAMINATION: General Appearance: Alert, cooperative, no distress, appears stated age. Neck HEENT: Supple, no lymphadenopathy, no thyroid enlargement, no carotid bruits. Lungs: Significant decreased breath sound bilaterally not moving much air with typical COPD positive mild rhonchi slight expiratory wheezes. Chest Wall: Decreased expansion with deep inspiration no tenderness and no deformity was found on exam, no costochondral pain or discomfort. Heart: Regular rate and rhythm, S1, S2 normal, no murmur, rub or gallop. Back: Symmetric, no curvature, ROM normal, no CVA tenderness. Abdomen: Soft, non-tender, bowel sounds active all four quadrants, no masses, no organomegaly. Extremities: Extremities normal, atraumatic, no cyanosis or edema. Pulses: 2+ and symmetric. Skin: Skin color, texture, tugor normal, no rashes or lesions. Neurologic: Alert oriented x3 cranial nerves II through XII intact, no motor deficit, no abnormal balance or gait. ASSESSMENT AND PLAN: _Recurrent chest pain and angina with worsening symptoms with exertion, echocardiogram was done and patient seen cardiology will be going for heart cath today. _Elevated blood pressure was started on losartan 25 mg a day. _Elevated D-dimer: Negative for PE at this point. _Hyperlipidemia: Had elevated cholesterol never been on medication in the past. Depending on the finding with a heart cath we will decide on further management whether she can benefit from being on statin or not. _Hyperglycemia, elevated blood sugar on admission fasting patient A1c be order based on it might benefit from SGLT2 product specially with her current history as well. _COPD: Mostly secondary to chronic smoking with significant tightness patient can benefit from at least bronchodilator along with steroid inhaler or combination product like Trelegy might be extremely beneficial especially keeping in hand Ventolin HFA as an option. _Chronic history of smoking with nicotine dependency: Smoking cessation was addressed in detail apparently was started on Wellbutrin in the office patient did not take it nicotine patch can be offered as an alternative for now. _Mild depression: Again resume Wellbutrin and titrate dose higher if needed. Discussion: Patient was supposed to go for heart cath she become more panicky refused to go for it AGAINST MEDICAL ADVICE will continue medical management and was advised to see a primary care physician shortly To plan may be for stress test as an outpatient. Hospital course: She presented to the emergency department on 04/20/2024 with recurrent chest pain for the last few weeks worsening with exertion she works in [employer] has been having a lot of stress lately upon presentation to the emergency department her CK with troponin was completely normal patient EKG did not show any major abnormality she had mild hyponatremia normal CBC chest x-ray showed no evidence of pulmonary process, her D-dimer was elevated ended up going for CTA did not show any pulmonary embolism. Echocardiogram was ordered and done which shows normal ejection fraction with mildly increased posterior wall thickness with prominent posterior pericardial stripe without effusion. Again when asking cardiology to evaluate this finding was told still can be normal. Cardiology believes doing a stress test for this patient especially with her presentation would not be helpful especially if it is negative does not exclude the positive coronary artery disease day schedule heart catheter. As she is waiting for the heart catheter she become more panicky and insist that she is not going for an echo stress she is not going to stay in the hospital for heart cath the signed sign AGAINST MEDICAL ADVICE and leave the hospital point. Patient was highly advised to see her primary care sure. Time and to plan for stress test as an outpatient if still interested if she become more symptomatic with any increased chest pain or any further complaint to return to the hospital. Time spent on patient discharge and all arrangements made for testing in such was over 45 minutes. Plan - Discharge Summary New Discharge Prescriptions: No Action buPROPion HCL [Wellbutrin XL] 150 mg PO DAILY Discharge Medication List buPROPion HCL [Wellbutrin XL] 150 mg PO DAILY 04/20/24 [History] Follow up Appointment(s)/Referral(s): Lillian Rubi MD [Primary Care Provider] - 1-2 days Discharge Disposition: LEFT AGAINST MEDICAL ADVICE
== END 2024-04-21 14:34 | disposition left against medical advice (07) ==
LOC: EC 11:20 → 6NMEDSUR 17:46
PROVIDERS: ADMIT Internal Medicine Geriatric Medicine; ATTEND Internal Medicine Geriatric Medicine
DX: I20.9 Angina pectoris, unspecified (principal); R07.89 Other chest pain; I10 Essential (primary) hypertension; E87.1 Hypo-osmolality and hyponatremia; R79.89 Other specified abnormal findings of blood chemistry; R94.5 Abnormal results of liver function studies; R73.9 Hyperglycemia, unspecified; J44.9 Chronic obstructive pulmonary disease, unspecified; K21.9 Gastro-esophageal reflux disease without esophagitis; E78.00 Pure hypercholesterolemia, unspecified; M25.50 Pain in unspecified joint; Z53.29 Procedure and treatment not carried out because of patient's decision for other reasons; F32.A Depression, unspecified; F41.9 Anxiety disorder, unspecified; F17.210 Nicotine dependence, cigarettes, uncomplicated; Z79.1 Long term (current) use of non-steroidal anti-inflammatories (NSAID); Z79.899 Other long term (current) drug therapy; Z87.19 Personal history of other diseases of the digestive system; Z82.49 Family history of ischemic heart disease and other diseases of the circulatory system
CPT/HCPCS: 99285; 36415; 93005 ×2; 93306; 85379; 80061 ×2; 80053; 80048; 83735; 84484; 85025 ×2; 85610; 85730; 83036; 71046; 71275; G0378 ×2; S4990; Q9967